=== PATIENT | male | born 2000 | race American Indian/Alaskan Native ===

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

== ENCOUNTER 2021-03-31 | Emergency (ER) | payer OTHER, SELFPAY ==
--- NOTE | 2021-03-31 00:42 | EDPHYS ---
Physician Documentation [facility] Name: Richar Booth Age: 20 yrs Sex: Male : 2000 Arrival Date: 03/31/2021 Time: 00:03 Bed 8 Private MD: ED Physician Nicko Bassett HPI: 03/31 00:46 This 20 yrs old Male presents to ER via Ambulatory with complaints of Toe jr8 Injury. 00:46 Onset: The symptoms/episode began/occurred acutely, today. The patient has not jr8 experienced similar symptoms in the past. The patient has not recently seen a physician. This is a 20-year-old male patient who presented to emergency room complaints of left toe deformity after accidentally running into the corner of his bed. Patient denies any other trauma.. Historical: - Allergies: 00:25 No Known Allergies; df1 - Home Meds: 00:25 Prozac 40 mg Oral cap 1 cap once daily [Active]; multivitamin Oral [Active]; df1 - PMHx: 00:25 Depressive disorder; df1 - PSHx: 00:25 None; df1 - Immunization history:: Adult Immunizations up to date, Client reports receiving the 2nd dose of the Covid vaccine. - Social history:: Smoking status: Patient denies any tobacco usage or history of. ROS: 00:46 Constitutional: Negative for fever, chills, and weight loss, Cardiovascular: Negative jr8 for chest pain, palpitations, and edema, Respiratory: Negative for shortness of breath, cough, wheezing, and pleuritic chest pain, Skin: Negative for injury, rash, and discoloration, Neuro: Negative for headache, weakness, numbness, tingling, and seizure. 00:46 MS/extremity: Positive for deformity, pain, tenderness, of the left fourth toe. 00:46 All other systems are negative. Exam: 00:46 Constitutional: This is a well developed, well nourished patient who is awake, alert, jr8 and in no acute distress. Cardiovascular: Regular rate and rhythm with a normal S1 and S2. No gallops, murmurs, or rubs. Normal PMI, no JVD. No pulse deficits. Respiratory: Lungs have equal breath sounds bilaterally, clear to auscultation and percussion. No rales, rhonchi or wheezes noted. No increased work of breathing, no retractions or nasal flaring. Skin: Warm, dry with normal turgor. Normal color with no rashes, no lesions, and no evidence of cellulitis. Neuro: Awake and alert, GCS 15, oriented to person, place, time, and situation. Cranial nerves II-XII grossly intact. Motor strength 5/5 in all extremities. Sensory grossly intact. 00:46 Musculoskeletal/extremity: Extremities: grossly normal except: noted in the left fourth toe: Patient had deformity with lateralization of the left fourth toe. No bruising, swelling, abrasion, laceration noted., ROM: intact in all extremities, Circulation is intact in all extremities. Sensation intact. Vital Signs: 00:23 BP 117 / 69; Pulse 78; Resp 18; Temp 98.4; Pulse Ox 100% ; Weight 72.57 kg; Height 5 df1 ft. 9 in. (175.26 cm); Pain 0/10; 00:56 BP 115 / 68; Pulse 75; Resp 18; Pulse Ox 100% on R/A; Pain 0/10; df1 00:23 Body Mass Index 23.63 (72.57 kg, 175.26 cm) df1 Procedures: 00:39 Splinting: Splint applied to left foot using Orthopedic shoe. applied by nurse. jr8 Examined by me, post splint application: neurovascular intact, 2+ distal pulses palpable, brisk capillary refill noted, Patient tolerated well. Reduction: of the left fourth toe, using traction, manipulation, Patient tolerated well. MDM: 00:13 Patient medically screened. jr8 00:39 Data reviewed: vital signs, nurses notes, radiologic studies, plain films. Data jr8 interpreted: Pulse oximetry: on room air is 100 %. Interpretation: normal. Counseling: I had a detailed discussion with the patient and/or guardian regarding: the historical points, exam findings, and any diagnostic results supporting the discharge/admit diagnosis, radiology results, the need for outpatient follow up, a general manager, to return to the emergency department if symptoms worsen or persist or if there are any questions or concerns that arise at home. 12 00:23 Order name: XRAY Foot LEFT 3 View df1 Administered Medications: No medications were administered Disposition: 00:58 Co-signature as Attending Physician, Nicko Bassett MD. pkl Disposition Summary: 03/31/21 00:41 Discharge Ordered Location: Home jr8 Problem: new jr8 Symptoms: have improved jr8 Condition: Stable jr8 Diagnosis - Displaced fracture of middle phalanx of left lesser toe(s), initial encounter for jr8 closed fracture Followup: jr8 - With: Shaan Ventura DPM - When: 2 - 3 days - Reason: Recheck today's complaints, Continuance of care, Re-evaluation by your physician Discharge Instructions: - Discharge Summary Sheet jr8 - Toe Fracture jr8 Forms: - Medication Reconciliation Form jr8 - Thank You Letter jr8 - Antibiotic Education jr8 - Prescription Opioid Use jr8 Signatures: Dispatcher [employer] EDMS Nicko Bassett MD MD pkl Karthikeyan Calvin PA PA jr8 America Cullen df1
--- NOTE | 2021-03-31 00:42 | ER ---
Nurse's Notes [facility] Name: Richar Booth Age: 20 yrs Sex: Male : 2000 Arrival Date: 03/31/2021 Time: 00:03 Bed 8 Private MD: Diagnosis: Displaced fracture of middle phalanx of left lesser toe(s), initial encounter for closed fracture Presentation: 03/31 00:23 Chief complaint: Patient states: Pt states hit 4th digit left foot on couch 1 hour [employer]. df1 Deformitiy noted. Coronavirus screen: Vaccine status: Patient reports receiving the 2nd dose of the covid vaccine. Client denies travel out of the [place] in the last 14 days. At this time, the client does not indicate any symptoms associated with coronavirus-19. Ebola Screen: Patient negative for fever greater than or equal to 101.5 degrees Fahrenheit, and additional compatible Ebola Virus Disease symptoms Patient denies exposure to infectious person. Patient denies travel to an Ebola-affected area in the 21 days before illness onset. Initial Sepsis Screen: Does the patient meet any 2 criteria? No. Patient's initial sepsis screen is negative. Does the patient have a suspected source of infection? No. Patient's initial sepsis screen is negative. Risk Assessment: Do you want to hurt yourself or someone else? Patient reports no desire to harm self or others. Onset of symptoms was March 30, 2021 at 23:00. 00:23 Method Of Arrival: Ambulatory df1 00:23 Acuity: MARIAELENA 4 df1 Triage Assessment: 00:26 General: Appears in no apparent distress. Behavior is calm, cooperative. Pain: Denies df1 pain. Historical: - Allergies: 00:25 No Known Allergies; df1 - Home Meds: 00:25 Prozac 40 mg Oral cap 1 cap once daily [Active]; multivitamin Oral [Active]; df1 - PMHx: 00:25 Depressive disorder; df1 - PSHx: 00:25 None; df1 - Immunization history:: Adult Immunizations up to date, Client reports receiving the 2nd dose of the Covid vaccine. - Social history:: Smoking status: Patient denies any tobacco usage or history of. Screenin:27 Abuse screen: Denies threats or abuse. Nutritional screening: No deficits noted. df1 Tuberculosis screening: No symptoms or risk factors identified. Fall Risk None identified. Assessment: 00:28 General: Appears in no apparent distress. Behavior is calm, cooperative. Pain: Denies df1 pain. Neuro: No deficits noted. Cardiovascular: No deficits noted. Respiratory: No deficits noted. GI: No deficits noted. : No deficits noted. EENT: No deficits noted. Musculoskeletal: Bony deformity noted of left fourth toe. Vital Signs: 00:23 BP 117 / 69; Pulse 78; Resp 18; Temp 98.4; Pulse Ox 100% ; Weight 72.57 kg; Height 5 df1 ft. 9 in. (175.26 cm); Pain 0/10; 00:56 BP 115 / 68; Pulse 75; Resp 18; Pulse Ox 100% on R/A; Pain 0/10; df1 00:23 Body Mass Index 23.63 (72.57 kg, 175.26 cm) df1 ED Course: 00:03 Patient arrived in ED. bp1 00:13 Karthikeyan Calvin PA is PHCP. jr8 00:13 Nicko Bassett MD is Attending Physician. jr8 00:23 America Cullen is Primary Nurse. df1 00:25 Triage completed. df1 00:27 Patient has correct armband on for positive identification. Bed in low position. Call df1 light in reach. Side rails up X 1. Adult w/ patient. 00:27 No provider procedures requiring assistance completed. Patient did not have IV access df1 during this emergency room visit. 00:28 Arm band placed on right wrist. df1 00:35 XRAY Foot LEFT 3 View In Process Unspecified. EDMS 00:40 Shaan Ventura DPM is Referral Physician. jr8 00:57 Assist provider with reduction of left left fourth toe using manipulation, Performed by df1 Karthikeyan CAR Immobilized with surgical shoe Patient tolerated well. Administered Medications: No medications were administered Outcome: 00:41 Discharge ordered by . jr8 00:58 Discharged to home ambulatory. df1 00:58 Condition: good 00:58 Discharge instructions given to patient, family, Instructed on discharge instructions, follow up and referral plans. medication usage, Demonstrated understanding of instructions, follow-up care, medications. 00:58 Patient left the ED. df1 Signatures: Dispatcher [employer] EDMI Karthikeyan Calvin PA PA jr8 Fozia Dsouza bp1 Subhash, America df1
[2021-03-31 01:07] VITALS: TEMP 98.4; O2SAT 100
[2021-03-31 01:09] VITALS: BP 115/68
--- NOTE | 2021-03-31 08:00 | RAD REPORT ---
EXAM DESCRIPTION: RAD - Foot Left 3 View - 03/31/2021 12:35 am CLINICAL HISTORY: DEFORMITY, foot trauma COMPARISON: No comparisons FINDINGS: Oblique fracture is present through the medial side base fourth middle phalanx with dorsal dislocation of the middle phalanx also present. Proximal and distal phalanges of the fourth toe are intact. No other fracture or acute finding seen. No air or foreign body in the soft tissues. IMPRESSION: Fracture and dislocation of the fourth middle phalanx left foot.
== END 2021-03-31 00:58 | disposition home or self-care (01) ==
LOC: ER
PROC: 0QSRXZZ Reposition Left Toe Phalanx, External Approach (ICD-10-PCS; principal; 2021-03-31)
DX: S92.522A Displaced fracture of middle phalanx of left lesser toe(s), initial encounter for closed fracture (principal); W22.03XA Walked into furniture, initial encounter; F32.A Depression, unspecified
CPT/HCPCS: 99284